=== PATIENT | male | born 1980 | race Caucasian/White ===

== ENCOUNTER 2018-04-01 12:31 | Emergency (ER) | payer BC ==
[~2018-04-01] VITALS: Ht 185.4 cm; Wt 77.1 kg
--- OUTSIDE RECORDS SUMMARY | ~2018-04-01 | XMS | Clinical Summary ---
Demographics + + + | Address | [address] | | | [place] [address] | + + + | Home Phone | | + + + | Preferred Language | Unknown | + + + | Marital Status | | + + + | Rastafari Affiliation | Unknown | + + + | Race | White | + + + | Ethnic Group | Not or | + + + Author + + + | Author | [facility] | + + + | Organization | [facility] | + + + | Address | Unknown | + + + | Phone | Unavailable | + + + Support + + +---------+ + | Name | Relationship | Address | Phone | + + +---------+ + | Rhett Vaz | ECON | Unknown | | + + +---------+ + Care Team Providers + +------+ + | Care Maintenance Foreman Name | Role | Phone | + +------+ + | Ariel Lloyd MD | PP | | + +------+ + Source Comments [facility]RULY is fully live on both [facility] and [facility] InPatient.[facility] Allergies No Known Allergies Current Medications + + + +---------+------+------+-------+ | Prescription | Sig. | Disp. | Refills | Star | End | Statu | | | | | | t | Date | s | | | | | | Date | | | + + + +---------+------+------+-------+ | esomeprazole 40 mg | | | | 11/0 | | Activ | | oral | | | | 2/20 | | e | | capsule,delayed | | | | 15 | | | | release(DR/EC) | | | | | | | + + + +---------+------+------+-------+ | FLUVIRIN | | | 0 | 10/1 | | Activ | | [id number], PF, 45 | | | | 3/20 | | e | | mcg (15 mcg x 3)/0.5 | | | | 15 | | | | mL intramuscular | | | | | | | | syringe | | | | | | | + + + +---------+------+------+-------+ | LORazepam 1 mg | as needed. | | | 11/0 | | Activ | | oral tablet | | | | 3/20 | | e | | | | | | 15 | | | + + + +---------+------+------+-------+ | rizatriptan rapid | | | | 11/0 | | Activ | | dissolve 10 mg oral | | | | 2/20 | | e | | tablet,disintegratin | | | | 15 | | | | g | | | | | | | + + + +---------+------+------+-------+ | sucralfate 1 gram | | | | 10/1 | | Activ | | oral tablet | | | | 6/20 | | e | | | | | | 15 | | | + + + +---------+------+------+-------+ | RIBOFLAVIN | Take 100 mg by | | | | | Activ | | (VITAMIN B-2 ORAL) | mouth. | | | | | e | + + + +---------+------+------+-------+ | escitalopram | Take 20 mg by mouth | | | | | Activ | | oxalate 10 mg oral | once daily at | | | | | e | | tablet | bedtime. | | | | | | + + + +---------+------+------+-------+ | EPINEPHrine 0.3 | Inject 0.3 mg into | | | | | Activ | | mg/0.3 mL (1:1,000) | the muscle (IM) as | | | | | e | | injection | needed. Administer | | | | | | | auto-injector | one dose every 10-20 | | | | | | | | minutes, no more | | | | | | | | than 2 doses without | | | | | | | | medical | | | | | | | | supervision. | | | | | | + + + +---------+------+------+-------+ | naratriptan 2.5 mg | One tab by mouth at | 9 | 11 | 11/ | | Activ | | oral | onset or awakening | tablet | | 09/26 | | e | | tabletIndications: | with migraine. | | | 15 | | | | Chronic migraine | Repeat 1 tab after 2 | | | | | | | without aura without | hrs as needed. Max | | | | | | | status migrainosus, | 2 tabs in 24 hrs. | | | | | | | not intractable | | | | | | | + + + +---------+------+------+-------+ | BUSPIRONE HCL | Take by mouth two | | | | | Activ | | (BUSPIRONE ORAL) | times daily. | | | | | e | + + + +---------+------+------+-------+ | ketorolac 10 mg | Take 10 mg by mouth. | | | / | | Activ | | oral tablet | Once a month up to | | | 10/24 | | e | | | four times a day for | | | 15 | | | | | five days. | | | | | | + + + +---------+------+------+-------+ | naproxen 500 mg | Take 500 mg by mouth | | | 12/1 | | Activ | | oral tablet | as needed. | | | 20 | | e | | | | | | 15 | | | + + + +---------+------+------+-------+ | diclofenac | Mix 1 packet and | 15 | 11 | 02/2 | | Activ | | potassium (CAMBIA) | take orally once | packet | | 01/24 | | e | | 50 mg oral powder in | daily as needed. | | | 16 | | | | packetIndications: | Indications: | | | | | | | Migraine | MIGRAINE | | | | | | + + + +---------+------+------+-------+ | DIETARY SUPPLEMENT | Take 1 tablet by | | | | | Activ | | ORAL | mouth two times | | | | | e | | | daily. Migravent. | | | | | | | | Cataplex G- takes 1 | | | | | | | | tablet by mouth | | | | | | | | three times a day. | | | | | | + + + +---------+------+------+-------+ | promethazine 25 mg | Take 25 mg by mouth | | | | | Activ | | oral tablet | four times daily as | | | | | e | | | needed. | | | | | | + + + +---------+------+------+-------+ | gabapentin 300 mg | 1 capsule once | | | 05/2 | | Activ | | oral capsule | daily. | | | 7/20 | | e | | | | | | 16 | | | + + + +---------+------+------+-------+ | topiramate 100 mg | 100mg at night | 60 | 5 | 05/2 | | Activ | | oral tablet | | tablet | | 7/20 | | e | | | | | | 16 | | | + + + +---------+------+------+-------+ | OnabotulinumtoxinA | Inject 155 Units | 1 each | 0 | 05/2 | | Activ | | 200 unit injection | into the muscle (IM) | | | 7/20 | | e | | recon | as needed. | | | 16 | | | | solnIndications: | Indications: | | | | | | | Migraine Prevention | MIGRAINE PREVENTION | | | | | | + + + +---------+------+------+-------+ | lisinopril 10 mg | Take 1 tablet by | 60 | 5 | 09/0 | | Activ | | oral tablet | mouth once daily. | tablet | | 2/20 | | e | | | Increase to 2 | | | 16 | | | | | tablets after 2 | | | | | | | | weeks if tolerated. | | | | | | + + + +---------+------+------+-------+ | tiZANidine 2 mg | Take 1-3 tablet at | 90 | 5 | 09/0 | | Activ | | oral tablet | night as needed | tablet | | 2/20 | | e | | | | | | 16 | | | + + + +---------+------+------+-------+ Active Problems + + + | Problem | Noted Date | + + + | Allergic rhinitis | 06/18/2015 | + + + | Anxiety | 06/18/2015 | + + + | Chronic migraine | 06/18/2015 | + + + | GERD (gastroesophageal reflux disease) | 06/18/2015 | + + + | Bee sting-induced anaphylaxis | 06/18/2015 | + + + | SVT (supraventricular tachycardia) (HCC) | 06/18/2015 | + + + | Abnormal finding on MRI of brain | 06/18/2015 | + + + + + | Overview: Small falcial area of calcification, minimal if any | | enhancement | + + Social History + +-------+ +--------+------+ | Tobacco Use | Types | Packs/Day | Years | Date | | | | | Used | | + +-------+ +--------+------+ | Never Smoker | | | | | + +-------+ +--------+------+ + + + | Sex Assigned at | Date Recorded | | | | + + + | Not on file | | + + + Last Filed Vital Signs + + + + | Vital Sign | Reading | Time Taken | + + + + | Blood Pressure | 122/69 | 04/08/2016 11:12 AM PDT | + + + + | Pulse | 70 | 04/08/2016 11:12 AM PDT | + + + + | Temperature | - | - | + + + + | Respiratory Rate | 14 | 01/01/2016 11:10 AM PDT | + + + + | Oxygen Saturation | - | - | + + + + | Inhaled Oxygen | - | - | | Concentration | | | + + + + | Weight | 92.1 kg (203 lb) | 04/08/2016 11:12 AM PDT | + + + + | Height | 185.4 cm (6' 1") | 09/14/2015 3:29 PM PST | + + + + | Body Mass Index | 26.78 | 04/08/2016 11:12 AM PDT | + + + + Plan of Treatment + + + + + | Health Maintenance | Due Date | Last Done | Comments | + + + + + | INFLUENZA VACCINE | | 05/19/2015, 07/26/2013, | | | (FLU SHOT) | 8 | 06/02/2009 | | + + + + + Results Not on filefrom Last 3 Months Insurance + +--------+ +------+ + + | Payer | Benefi | Subscriber | Type | Phone | Address | | | t Plan | ID | | | | | | / | | | | | | | Group | | | | | + +--------+ +------+ + + | [employer] | PREMER | xxxxxxxxxxx | PPO | [phone] | [address] [address] [place] | | | A OF | [phone] | [phone] | [place] [address] | | | [place] | | | | | | | [place] | | | | | + +--------+ +------+ + + + +--------+ +--------+ + + | Guarantor Name | Accoun | Relation to | Date | Phone | Billing Address | | | t Type | Patient | of | | | | | | | | | | + +--------+ +--------+ + + | KRISTINA VAZ | Person | 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
--- OUTSIDE RECORDS SUMMARY | ~2018-04-01 | XMS | Clinical Summary ---
Demographics + + + | Address | [address] | | | [place] [address] | + + + | Home Phone | | + + + | Preferred Language | Unknown | + + + | Marital Status | | + + + | Confucianist Affiliation | Unknown | + + + | Race | White | + + + | Ethnic Group | Not or | + + + Author + + + | Author | [facility] | + + + | Organization | [facility] | + + + | Address | Unknown | + + + | Phone | Unavailable | + + + Support + + +---------+ + | Name | Relationship | Address | Phone | + + +---------+ + | Rhett Vaz | ECON | Unknown | | + + +---------+ + Care Team Providers + +------+ + | Care Strike Plate Attacher Name | Role | Phone | + +------+ + | Ariel Lloyd MD | PP | | + +------+ + Source Comments UNRULY is fully live on both [facility] and 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
[~2018-04-01 12:31] MED LIST: ADRENACLIC0.3 MG/0.3 IM; AMITRIPTYLINE H25 MG PO; AUVI-Q0.3 MG/0.3 IJ; B2; BUSPIRONE HCL10 MG; CARAFATE1 GM PO; COMPAZINE25 MG PR; CORGARD20 MG PO; FIORINAL 50-321 EACH PO; FIORINAL WITH1 EACH PO; KETOROLAC TROME10 MG PO; LEXAPRO20 MG PO; LORAZEPAM1 MG PO; MAXALT MLT10 MG PO; METOPROLOL SUCC25 MG PO; NADOLOL20 MG PO; NAPROXEN500 MG PO; NARATRIPTAN HCL1 MG PO; NEXIUM40 M1 PO; NEXIUM40 MG PO; TOPAMAX100 MG PO; TOPAMAX25 MG PO; ZYRTEC10 MG PO
[2018-04-01] MEDS ORDERED: ALLEGRA ALLERG180 MG PO (12:55)
[2018-04-01] MEDS ORDERED: DELTASONE20 MG PO (13:38)
[2018-04-01] MEDS ORDERED: PEPCID20 MG PO (13:38)
[2018-04-01] MEDS ORDERED: ZYRTEC10 MG PO (13:38)
[2018-04-01] MEDS ORDERED: EPIPEN 2-P0.3 MG/0.3 IM (13:41)
== END 2018-04-01 14:55 | disposition home or self-care (01) ==
LOC: ED 12:31
DX: T63.441A Toxic effect of venom of bees, accidental (unintentional), initial encounter (principal); G43.909 Migraine, unspecified, not intractable, without status migrainosus; F41.9 Anxiety disorder, unspecified; K21.9 Gastro-esophageal reflux disease without esophagitis; Z91.030 Bee allergy status; Z79.899 Other long term (current) drug therapy
CPT/HCPCS: 96361; 96374; 96375; 99284; J1200; J2930; J7030

== ENCOUNTER 2022-12-31 11:32 | Emergency (ER) | payer BC ==
[~2022-12-31] VITALS: Ht 185.4 cm; Wt 88.5 kg
[~2022-12-31 11:32] MED LIST changes: +ALLEGRA ALLERG180 MG PO; +DELTASONE20 MG PO; +EPIPEN 2-P0.3 MG/0.3 IM; +PEPCID20 MG PO
--- OUTSIDE RECORDS SUMMARY | 2022-12-31 11:35 | XMS ---
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 EKalin VISIT COUNT (12 MO.) 1 ANGIE Adams TOTAL 1 NOTE: Visits indicate total known visits. ED/UCC VISIT TRACKING (12 MO.) 12/31/2022 11:33 ANGIE Ro OR TYPE: Emergency COMPLAINT: - CHEST PAIN INPATIENT VISIT TRACKING (12 MO.) No inpatient visits to display in this time frame [id number]
[2022-12-31] MEDS ORDERED: WELLBUTRIN XL150 MG PO (12:38)
[2022-12-31] MEDS ORDERED: REMERON15 MG PO (12:38)
[2022-12-31] MEDS ORDERED: BENADRYL ALLERG25 MG PO (12:39)
[2022-12-31] MEDS ORDERED: GABAPENTIN600 MG PO (12:40)
[2022-12-31 13:35] VITALS: BP 135/94
--- NOTE | 2022-12-31 18:10 | EKG ---
[facility] [address] [facility] [place] [address] Signed Sinus tachycardia Nonspecific ST abnormality Abnormal ECG No previous ECGs available Confirmed by HENRRY QUIROGA MD ([id number]) on 12/31/2022 6:09:52 PM Electronically Signed By: HENRRY QUIROGA MD 12/31/221809 PATIENT NAME: GIAKRISTINA Electrocardiogram DATE OF : 82 PHYSICIAN: HENRRY QUIROGA MD REPORT #: [id number] REPORT IS CONFIDENTIAL AND NOT TO BE RELEASED WITHOUT AUTHORIZATION
== END 2022-12-31 13:35 | disposition home or self-care (01) ==
LOC: ED 11:32
DX: R07.89 Other chest pain (principal); F41.9 Anxiety disorder, unspecified; Z79.899 Other long term (current) drug therapy; Z91.030 Bee allergy status
CPT/HCPCS: 36415; 71260; 80053; 83735; 84484; 85025; 93005; 93010; 99285-25; A9270; J2060; Q9967